=== PATIENT | female | born 1990 | race Caucasian/White ===

== ENCOUNTER 2020-10-09 08:13 | Outpatient (CLI) | payer OTHER, SELFPAY ==
[2020-10-09 09:43] LABS: Cortisol Baseline 7.68 ug/dL
== END 2020-10-09 08:14 | disposition home or self-care (01) ==
PROVIDERS: PCP Nurse Practitioner Adult Health; Visit Provider Internal Medicine Endocrinology, Diabetes & Metabolism
DX: I95.9 Hypotension, unspecified (principal)
CPT/HCPCS: 36415; 82533; 96372; J0834